=== PATIENT | male | born 1985 | race Caucasian/White ===

== ENCOUNTER 2021-03-31 13:03 | Emergency (ER) | payer SELFPAY ==
[~2021-03-31] VITALS: Ht 167.6 cm; Wt 63.5 kg
[2021-03-31 13:08] VITALS: BP 134/88
[2021-03-31] MEDS ORDERED: ACET-8386 PO ×2 (13:23→13:28)
[2021-03-31] MEDS ORDERED: LID5T TP ×2 (13:23→13:28)
--- NOTE | 2021-03-31 13:30 | NUR ---
BIBS C/O 8 MID BACK PAIN X 4 DAYS. DENIES DYSURIA. PMH: BACK SURGERY 2 YEARS AGO
--- NOTE | 2021-03-31 13:37 | NUR ---
Patient discharged with v/s stable. Written and verbal after care instructions given and explained. Patient alert, oriented and verbalized understanding of instructions. Ambulatory with steady gait. All questions addressed prior to discharge. ID band removed. Patient advised to follow up with PMD. Rx of NORCO & LIDOCAIN 5% PATCH given. Patient educated on indication of medication including possible reaction and side effects. Opportunity to ask questions provided and answered.
[2021-03-31 13:39] VITALS: BP 134/88
== END 2021-03-31 13:37 | disposition home or self-care (01) ==
LOC: MED 13:03
DX: M54.9 Dorsalgia, unspecified (principal); G89.29 Other chronic pain; Z88.6 Allergy status to analgesic agent; Z79.899 Other long term (current) drug therapy
CPT/HCPCS: 99283